=== PATIENT | male | born 1945 | race Two or more races ===

== ENCOUNTER → 2024-08-17 | Day surgery (SDC) | payer OTHER ==
[~2024-08-17] VITALS: Ht 172.7 cm; Wt 63.5 kg
[~2024-08-17] MED LIST: ALEN70SO2 OR; ASPI-543 PO; ATOR10TA52 PO; CHOL20007 PO; LISI20TA56 PO; METF-370 PO; OMEG306C OR; PROPOFOL 10 MG/ML 20 ML IV ONE; SITA50TA PO; TAMS0.4C39 PO
--- NOTE | 2024-08-17 08:42 | DVHHP2 ---
GI H&P Pre-Op Assessment Date: 08/17/24 Chief complaint: colon cancer screening, rectal bleeding, positive fit test HPI: per clinic note Past medical history: per clinic note Past surgical history: per clinic note Family history: per clinic note Physical exam: General: NAD, AAOX3 HEENT: PERRL, no scleral icterus, normal hearing, gums without lesions or bleeding, oropharynx clear without erythema or exudate. Neck: Supple without enlargement of the thyroid, or lymphadenopathy. Chest: Normal size and shape, no tenderness, lung hernandez clear to auscultation and percussion, nonlabored breathing. Heart: RRR, no murmur Abdomen: non-distended, no tenderness to palpation, +BS, no hepatosplenomegaly Extremities: no edema Neurological: CN II-XII intact, sensation intact in all extremities, 5+ strength in all extremities Skin: No rashes, No jaundice Assessment: - colon cancer screening, rectal bleeding, positive fit test Plan: - Colonoscopy - Risks (bleeding, infection, perforation, reaction to sedation medications and cardiopulmonary arrest) and benefit of the procedure were explained to patient. Patient agrees to undergo the procedure. YOJANA YBARRA MD Aug 17, 2024 08:42
[2024-08-17 09:12] VITALS: PULSE 74; RESP 12; TEMP 97.5; O2SAT 96
--- NOTE | 2024-08-17 09:13 | DVHOP2 ---
Operative Report DATE OF OPERATION: 08/17/24 PROCEDURE: Colonoscopy. PREOPERATIVE INDICATION: The patient is a 79 -year-old male with history of colon polyp undergoing colonoscopy for positive fit test and rectal bleeding. POSTOPERATIVE DIAGNOSES: 1. 7 mm cecal polyp was injected with saline and removed with hot snare. It was retrieved. 2. Large rectal lesion right above the anus encompassing about a 3rd of the circumference. Biopsies were taken. 3. There was a lot of diverticulosis in the left colon. PROCEDURE PERFORMED BY: Alexsander Diamond M.D. SCOPE: Olympus videocolonoscope. ASA CLASS: 3 PREOPERATIVE MEDICATIONS: Mac with Dr. Lee PROCEDURE IN DETAIL: After obtaining an informed consent, the patient was placed on left lateral decubitus position. He was then sedated with the above medications. A rectal examination was performed that was normal. The colonoscope was then passed through the anus into the rectosigmoid and through the descending, transverse, and ascending colon up to the cecum with visualization of the appendiceal orifice, base of the cecum and the ileocecal valve. A 7 mm cecal polyp was injected with saline and removed with hot snare. It was retrieved. There was a large rectal lesion right above the anus encompassing about a 3rd of the circumference. Biopsies of the lesion were taken. There was a lot of diverticulosis in the left colon. The colonoscope was then withdrawn. The patient tolerated the procedure well without difficulty. WITHDRAWAL TIME: 18 minutes QUALITY OF THE PREP: [place] Bowel Prep score: 6 COMPLICATIONS : None SPECIMENS: Colon polyp, rectal lesion biopsy DISPOSITION: D/C to home PLAN: 1. Repeat colonoscopy base on biopsy result ALEXSANDER DIAMOND MD Aug 17, 2024 09:13
--- NOTE | 2024-08-17 09:14 | DVHDS2 ---
Physician Discharge Progress N Final Diagnosis: Rectal lesion, colon polyp, diverticulosis Operations or Procedures: Operations or Procedures Colonoscopy with cold biopsy and injection with saline and hot snare polypectomy Condition on Discharge: Good Disposition: Home Discharge Instructions: Diet: Regular Activity: No Restrictions, As Tolerated Medications: Resume previous home medications Follow Up Care: Discharge Statement: "Patient was advised to return to the ER or call 911 if any headaches, dizziness, shortness of breath, chest pain, abdominal pain, bleeding, fevers, or worsening of medical condition. Patient was counseled about treatment plan, medications, possible side effects, patientverbalized understanding. All questions were answered to the best of my ability. This discharge took greater then 30 minutes in planning, reviewing documentation, counseling the patient, and discussing with other team members." YOJANA YBARRA MD Aug 17, 2024 09:14
[2024-08-17 09:40] VITALS: BP 136/69; PULSE 74; RESP 18; O2SAT 97
== END | disposition home or self-care (01) ==
LOC: GI 07:14
PROVIDERS: ATTEND Internal Medicine Gastroenterology
DX: K62.5 Hemorrhage of anus and rectum (principal); D12.0 Benign neoplasm of cecum; C20 Malignant neoplasm of rectum; K57.30 Diverticulosis of large intestine without perforation or abscess without bleeding; R19.5 Other fecal abnormalities; E11.9 Type 2 diabetes mellitus without complications; E78.5 Hyperlipidemia, unspecified; N40.0 Benign prostatic hyperplasia without lower urinary tract symptoms; Z79.84 Long term (current) use of oral hypoglycemic drugs; Z79.82 Long term (current) use of aspirin; Z79.899 Other long term (current) drug therapy; Z86.73 Personal history of transient ischemic attack (TIA), and cerebral infarction without residual deficits; Z87.01 Personal history of pneumonia (recurrent); Z98.890 Other specified postprocedural states; Z88.5 Allergy status to narcotic agent
CPT/HCPCS: 45380; 45381; 45385; 82962; 88305; 88342; J2704; J7030